=== PATIENT | male | born 1940 | race Hispanic/Latino ===

== ENCOUNTER → 2020-09-17 | Outpatient (CLI) | payer OTHER | END | disposition home or self-care (01) | LOC: SHCH 08:20 | PROVIDERS: ATTEND Internal Medicine Cardiovascular Disease | DX: I11.9 Hypertensive heart disease without heart failure (principal); E66.9 Obesity, unspecified; E78.5 Hyperlipidemia, unspecified; R55 Syncope and collapse | CPT/HCPCS: 93306; 93356 ==

== ENCOUNTER 2021-01-07 07:48 | Day surgery (SDC) | payer OTHER ==
[2021-01-05 10:55] LABS: APPEARANCE,URINE Clear (CLEAR); BILIRUBIN,URINE Negative (NEGATIVE); COLOR,URINE Yellow (YELLOW); GLUCOSE, URINE (UA) Negative (NEGATIVE); KETONES,URINE Negative (NEGATIVE); LEUKOCYTE ESTERASE ,URINE Negative (NEGATIVE); NITRATE,URINE Negative (NEGATIVE); OCCULT BLOOD,URINE Negative (NEGATIVE); PROTEIN,URINE Negative (NEGATIVE); UROBILINOGEN,URINE 0.2 mg/dL (0.2-1.0)
[2021-01-05 11:15] LABS: BASOPHILS % (AUTO) 0.6 % (0.0-5.0); EOSINOPHILS % (AUTO) 1.7 % (0.0-8.0); HEMATOCRIT 41.4 % (42-54); MEAN CORPUSCULAR HEMOGLOBIN 29.8 pg (27.0-33.0); MEAN CORPUSCULAR HGB CONC 32.4 g/dL (32.0-36.0); MONOCYTES % (AUTO) 9.7 % (3.0-13.0); NEUTROPHILS % (AUTO) 58.5 % (40.0-77.0); PLATELET COUNT (AUTO) 215 K/uL (130-400); RED CELL DISTRIBUTION WIDTH 14.4 % (11.0-15.5); WHITE BLOOD COUNT (AUTO) 6.3 K/uL (4.8-10.8)
[2021-01-05 11:20] LABS: CREATININE 1.2 mg/dL (0.5-1.5); POTASSIUM 4.7 mmol/L (3.5-5.1)
[2021-01-05 12:12] LABS: INR 0.98 (0.85-1.15); PROTHROMBIN TIME 10.7 SEC (9.6-11.6)
[2021-01-05 12:14] LABS: PARTIAL THROMBOPLASTIN TIME 28.2 SEC (26.3-35.5)
[2021-01-06 10:18] VITALS: BP 162/70
[2021-01-07] VITALS (11 sets, daily range): BP systolic 120–152; BP diastolic 54–77
[~2021-01-07] VITALS: Ht 172.7 cm; Wt 94.3 kg
[~2021-01-07 07:48] MED LIST: 0.9% NACL 500ML IV.SOLN 500 ML IV SCH; AEC81 PO; LOSA50TA64 PO; SIMV80TA91 PO
[2021-01-07] MEDS ORDERED: 0.9%NACL 1000ML 1,000 ML IV ONE (08:16)
[2021-01-07] MEDS ORDERED: METO-408 PO (08:49)
[2021-01-07] MEDS ORDERED: SODIUM BICARB 50MEQ 50ML VIAL 50 ML ONE (09:44)
[2021-01-07] MEDS ORDERED: IOHEXOL 350 MG/ML 100ML INFUS..BTL IV ONE (09:45)
[2021-01-07] MEDS ORDERED: MEPERIDINE-PF 25 MG/ML SYG ONE ×2 (09:45→10:34)
[2021-01-07] MEDS ORDERED: NICARDIPINE 25MG INJ IV ONE (09:45)
[2021-01-07] MEDS ORDERED: HEPARIN 10,000 UNIT/10ML (1,000 UNIT/ML) VIAL ONE (09:45)
[2021-01-07] MEDS ORDERED: NITROGLYCERIN 2 MG VIAL IV ONE (09:45)
[2021-01-07] MEDS ORDERED: IOHEXOL-350 50ML VIAL IV ONE (09:45)
[2021-01-07] MEDS ORDERED: LIDOCAINE HCL 400MG/20ML VIAL ONE (09:46)
[2021-01-07] MEDS ORDERED: MIDAZOLAM HCL 1 MG/ML 2ML VIAL ONE ×2 (09:46→10:34)
[2021-01-07] MEDS ORDERED: 0.9%NACL 1000ML 1,000 ML IV SCH (11:30)
== END 2021-01-07 15:45 | disposition home or self-care (01) ==
LOC: DAH 07:48
PROVIDERS: ATTEND Internal Medicine Cardiovascular Disease
DX: I25.119 Atherosclerotic heart disease of native coronary artery with unspecified angina pectoris (principal); I10 Essential (primary) hypertension; Z79.01 Long term (current) use of anticoagulants; Z79.899 Other long term (current) drug therapy; Z79.82 Long term (current) use of aspirin; Z90.89 Acquired absence of other organs; Z98.890 Other specified postprocedural states
CPT/HCPCS: 36415; 71045; 80048; 81003; 85025; 85610; 85730; 93005; 93458; A4215; A4216; A4221; A4222; A4223 ×3; A4606; A4663; C1769; C1894; J1644; J2175 ×2; J2250 ×2; J3490 ×4; J7030; Q9965; Q9967 ×2; 99156; 99157

== ENCOUNTER 2022-01-10 08:25 | Inpatient (IN) | payer OTHER ==
[~2022-01-10] VITALS: Ht 172.7 cm; Wt 83.0 kg
[~2022-01-10 08:25] MED LIST changes: -0.9% NACL 500ML IV.SOLN 500 ML IV SCH; +METO-408 PO
[2022-01-10 09:21] LABS: BASOPHILS % (AUTO) 0.5 % (0.0-5.0); EOSINOPHILS % (AUTO) 1.4 % (0.0-8.0); HEMATOCRIT 43.4 % (42-54); LYMPHOCYTES % (AUTO) 19.2 % (21.0-51.0); MEAN CORPUSCULAR HEMOGLOBIN 29.8 pg (27.0-33.0); MEAN CORPUSCULAR HGB CONC 33.6 g/dL (32.0-36.0); MEAN CORPUSCULAR VOLUME 88.6 fL (79-99); MONOCYTES % (AUTO) 7.3 % (3.0-13.0); NEUTROPHILS % (AUTO) 71.1 % (40.0-77.0); PLATELET COUNT (AUTO) 219 K/uL (130-400); RED CELL DISTRIBUTION WIDTH 14.6 % (11.0-15.5); WHITE BLOOD COUNT (AUTO) 7.9 K/uL (4.8-10.8)
[2022-01-10 09:30] LABS: INR 0.94 (0.85-1.15); PROTHROMBIN TIME 10.3 SEC (9.6-11.6)
[2022-01-10 09:32] LABS: PARTIAL THROMBOPLASTIN TIME 28.1 SEC (26.3-35.5)
[2022-01-10 09:47] LABS: APPEARANCE,URINE CLEAR (CLEAR); BILIRUBIN,URINE NEGATIVE (NEGATIVE); COLOR,URINE YELLOW (YELLOW); GLUCOSE, URINE (UA) NEGATIVE (NEGATIVE); KETONES,URINE NEGATIVE (NEGATIVE); LEUKOCYTE ESTERASE ,URINE NEGATIVE (NEGATIVE); NITRATE,URINE NEGATIVE (NEGATIVE); OCCULT BLOOD,URINE NEGATIVE (NEGATIVE); PROTEIN,URINE NEGATIVE (NEGATIVE); UROBILINOGEN,URINE 0.2 mg/dL (0.2-1.0)
[2022-01-10 09:47] LABS: ALBUMIN 3.5 g/dL (3.5-5.0); B-TYPE NATRIURETIC PEPTIDE 171 pg/mL (0-100); CREATININE 1.1 mg/dL (0.5-1.5); POTASSIUM 4.4 mmol/L (3.5-5.1); TOTAL PROTEIN, SERUM 7.4 g/dL (6.0-8.3)
[2022-01-10] MEDS ORDERED: ASPI-1443 PO (10:54)
[2022-01-10] MEDS ORDERED: MULT-1192 PO (10:54)
[2022-01-10 11:20] LABS: HEMOGLOBIN A1C 5.9 % (4.0-6.0)
[2022-01-10] MEDS: 0.9%NACL 1000ML 1,000 ML IV SCH (11:39)
[2022-01-10 14:00] VITALS: BP 154/67
[2022-01-10 16:00] VITALS: BP 173/77
[2022-01-10] MEDS: ATORVASTATIN 40 MG TABLET PO SCH (19:43)
[2022-01-10 20:00] VITALS: BP 146/66
[2022-01-11] VITALS: BP 182/67
[2022-01-11 03:50] LABS: HEMATOCRIT 39.5 % (42-54); MEAN CORPUSCULAR HEMOGLOBIN 29.9 pg (27.0-33.0); MEAN CORPUSCULAR HGB CONC 34.2 g/dL (32.0-36.0); MEAN CORPUSCULAR VOLUME 87.4 fL (79-99); RED BLOOD CELL COUNT(AUTO) 4.52 MIL/uL (4.50-6.20); RED CELL DISTRIBUTION WIDTH 14.3 % (11.0-15.5); WHITE BLOOD COUNT (AUTO) 7.2 K/uL (4.8-10.8)
[2022-01-11 04:00] VITALS: BP 147/73
[2022-01-11 04:04] LABS: INR 0.99 (0.85-1.15); PROTHROMBIN TIME 10.8 SEC (9.6-11.6)
[2022-01-11 04:14] LABS: ALBUMIN 3.2 g/dL (3.5-5.0); CREATININE 1.1 mg/dL (0.5-1.5); POTASSIUM 3.9 mmol/L (3.5-5.1); TOTAL PROTEIN, SERUM 6.6 g/dL (6.0-8.3)
[2022-01-11] MEDS: 0.9%NACL 1000ML 1,000 ML IV SCH (07:00)
[2022-01-11 09:21] VITALS: BP 111/72
[2022-01-11 12:27] VITALS: BP 142/61
[2022-01-11] MEDS: ASPIRIN 81 MG EC TAB PO SCH (12:43)
[2022-01-11] MEDS: CLOPIDOGREL 75MG TAB PO SCH (12:44)
[2022-01-11] MEDS: FAMOTIDINE 20MG VIAL IV SCH ×2 (12:51→20:17)
[2022-01-11 17:26] VITALS: BP 145/103
[2022-01-11] MEDS: ATORVASTATIN 40 MG TABLET PO SCH (20:17)
[2022-01-11 21:21] VITALS: BP 139/74
[2022-01-12 00:09] VITALS: BP 160/73
[2022-01-12 03:50] VITALS: BP 145/66
[2022-01-12 08:11] VITALS: BP 143/70
[2022-01-12] MEDS: FAMOTIDINE 20MG VIAL IV SCH ×2 (08:20→20:08)
[2022-01-12] MEDS: ASPIRIN 81 MG EC TAB PO SCH (08:21)
[2022-01-12] MEDS: CLOPIDOGREL 75MG TAB PO SCH (08:21)
[2022-01-12 11:28] VITALS: BP 115/56
[2022-01-12] MEDS ORDERED: ATOR40TA69 PO (13:54)
[2022-01-12] MEDS ORDERED: CLOP75TA14 PO (13:54)
[2022-01-12 16:52] VITALS: BP 134/73
[2022-01-12] MEDS ORDERED: LACTULOSE 20 GM/30 ML UDCUP PO PRN (18:00)
[2022-01-12 19:57] VITALS: BP 145/75
[2022-01-12] MEDS: ATORVASTATIN 40 MG TABLET PO SCH (20:08)
[2022-01-13] VITALS (7 sets, daily range): BP systolic 125–152; BP diastolic 56–76
[2022-01-13 03:54] LABS: HEMATOCRIT 38.6 % (42-54); MEAN CORPUSCULAR HGB CONC 33.9 g/dL (32.0-36.0); MEAN CORPUSCULAR VOLUME 88.3 fL (79-99); RED BLOOD CELL COUNT(AUTO) 4.37 MIL/uL (4.50-6.20); RED CELL DISTRIBUTION WIDTH 14.5 % (11.0-15.5); WHITE BLOOD COUNT (AUTO) 7.7 K/uL (4.8-10.8)
[2022-01-13 04:15] LABS: CREATININE 1.2 mg/dL (0.5-1.5); POTASSIUM 3.7 mmol/L (3.5-5.1)
[2022-01-13] MEDS: ASPIRIN 81 MG EC TAB PO SCH (08:28)
[2022-01-13] MEDS: FAMOTIDINE 20MG VIAL IV SCH ×2 (08:29→21:22)
[2022-01-13] MEDS: CLOPIDOGREL 75MG TAB PO SCH (08:29)
[2022-01-13] MEDS: ATORVASTATIN 40 MG TABLET PO SCH (21:22)
[2022-01-14 04:11] VITALS: BP 140/70
[2022-01-14 08:00] VITALS: BP 155/66
[2022-01-14] MEDS: ASPIRIN 81 MG EC TAB PO SCH (08:24)
[2022-01-14] MEDS: FAMOTIDINE 20MG VIAL IV SCH (08:24)
[2022-01-14] MEDS: CLOPIDOGREL 75MG TAB PO SCH (08:24)
[2022-01-14] MEDS ORDERED: AMLODIPINE 5 MG TAB PO SCH (10:00)
[2022-01-14] MEDS ORDERED: FAMOTIDINE 20MG TAB PO SCH (10:28)
[2022-01-14 12:19] VITALS: BP 124/60
== END 2022-01-14 13:13 | DRG 65 ==
LOC: EDH 08:25 → EDHIP 10:52 → 4BH 13:40
PROVIDERS: ADMIT Hospitalist; ATTEND Hospitalist
DX: I63.512 Cerebral infarction due to unspecified occlusion or stenosis of left middle cerebral artery (principal); G81.91 Hemiplegia, unspecified affecting right dominant side; Z20.822 Contact with and (suspected) exposure to COVID-19; I25.10 Atherosclerotic heart disease of native coronary artery without angina pectoris; E66.9 Obesity, unspecified; R13.10 Dysphagia, unspecified; E78.5 Hyperlipidemia, unspecified; I11.9 Hypertensive heart disease without heart failure; Z95.1 Presence of aortocoronary bypass graft; Z86.73 Personal history of transient ischemic attack (TIA), and cerebral infarction without residual deficits; Z79.899 Other long term (current) drug therapy; Z79.82 Long term (current) use of aspirin; Z79.02 Long term (current) use of antithrombotics/antiplatelets; Z68.27 Body mass index [BMI] 27.0-27.9, adult
CPT/HCPCS: 36415; 70450; 70551; 71045; 74230; 80048; 80053; 80061; 81003; 82550; 82948; 83036; 83721; 83874; 83880; 84484; 85025; 85027; 85610; 85730; 87635; 92522; 92610; 92611; 93005; 93306; 93356; 93880; 97039; G0378; J3490; J7030

== ENCOUNTER 2022-04-03 06:59 | Day surgery (SDC) | payer OTHER ==
[2022-03-30 11:24] LABS: BASOPHILS % (AUTO) 0.7 % (0.0-5.0); EOSINOPHILS % (AUTO) 1.5 % (0.0-8.0); HEMATOCRIT 42.8 % (42-54); LYMPHOCYTES % (AUTO) 25.1 % (21.0-51.0); MEAN CORPUSCULAR HEMOGLOBIN 29.6 pg (27.0-33.0); MEAN CORPUSCULAR HGB CONC 32.5 g/dL (32.0-36.0); MEAN CORPUSCULAR VOLUME 91.1 fL (79-99); MONOCYTES % (AUTO) 9.9 % (3.0-13.0); NEUTROPHILS % (AUTO) 62.4 % (40.0-77.0); PLATELET COUNT (AUTO) 231 K/uL (130-400); RED CELL DISTRIBUTION WIDTH 14.6 % (11.0-15.5); WHITE BLOOD COUNT (AUTO) 7.3 K/uL (4.8-10.8)
[2022-03-30 11:28] LABS: CREATININE 1.2 mg/dL (0.5-1.5); POTASSIUM 4.8 mmol/L (3.5-5.1)
[2022-03-30 11:35] LABS: INR 0.94 (0.85-1.15); PROTHROMBIN TIME 10.3 SEC (9.6-11.6)
[2022-03-30 11:37] LABS: PARTIAL THROMBOPLASTIN TIME 27.1 SEC (26.3-35.5)
[2022-03-31 17:07] VITALS: BP 162/75
[2022-04-03] VITALS (26 sets, daily range): BP systolic 118–184; BP diastolic 58–96
[~2022-04-03] VITALS: Ht 172.7 cm; Wt 83.7 kg
[~2022-04-03 06:59] MED LIST changes: -AEC81 PO; +AMLO-257 PO; +ATOR40TA69 PO; +CLOP75TA32 PO; +IBUP-2070 PO; -LOSA50TA64 PO; -METO-408 PO; -SIMV80TA91 PO
[2022-04-03] MEDS ORDERED: FLUMAZENIL 0.1MG/1ML 5ML VIAL IV ONE (07:53)
[2022-04-03] MEDS ORDERED: LIDOCAINE HCL 2% VISCOUS 15 ML UDCUP ONE (07:53)
[2022-04-03] MEDS ORDERED: FENTANYL CITRATE PF 50 MCG/1 ML 2ML VIAL ONE (07:54)
[2022-04-03] MEDS ORDERED: NALOXONE HCL 0.4 MG/1 ML ML ONE (07:54)
[2022-04-03] MEDS ORDERED: MIDAZOLAM HCL 1 MG/ML 2ML VIAL ONE ×4 (07:55→09:43)
[2022-04-03] MEDS ORDERED: PROPOFOL 10 MG/ML 20ML VIAL IV ONE (07:56)
[2022-04-03] MEDS ORDERED: MELA3CAP2 PO (08:53)
[2022-04-03] MEDS ORDERED: MEPERIDINE-PF 25 MG/ML SYG ONE ×2 (09:31→09:43)
[2022-04-03] MEDS ORDERED: LIDOCAINE HCL 1% 20 ML VIAL ONE (09:31)
[2022-04-03] MEDS ORDERED: CEFAZOLIN SODIUM 1 GM VIAL ONE (09:55)
== END 2022-04-03 12:15 | disposition home or self-care (01) ==
LOC: DAH 06:59
PROVIDERS: ATTEND Internal Medicine Cardiovascular Disease
DX: R06.09 Other forms of dyspnea (principal); I25.3 Aneurysm of heart; I63.89 Other cerebral infarction; I34.0 Nonrheumatic mitral (valve) insufficiency; I10 Essential (primary) hypertension; E78.5 Hyperlipidemia, unspecified; Z79.01 Long term (current) use of anticoagulants; Z79.899 Other long term (current) drug therapy; Z79.82 Long term (current) use of aspirin; Z90.89 Acquired absence of other organs; Z98.890 Other specified postprocedural states; Z82.49 Family history of ischemic heart disease and other diseases of the circulatory system; Z95.5 Presence of coronary angioplasty implant and graft
CPT/HCPCS: 80048; 85025; 85610; 85730; 36415; 93005; 33285; 93325; 93312; C1764; J3010; J0690; J2250 ×4; J2704; J2175 ×2; A4615; A4215; A4657; A4222; A4221; A4663; A4216; A4606; A4223 ×3; 96374; 99156; 99157; J2310; J3490

== ENCOUNTER → 2022-07-26 | Outpatient (CLI) | payer OTHER ==
[~2022-07-26] MED LIST changes: +MELA3CAP2 PO
== END | disposition home or self-care (01) ==
LOC: RAH 11:56
PROVIDERS: ATTEND Physical Medicine & Rehabilitation
DX: M47.27 Other spondylosis with radiculopathy, lumbosacral region (principal); M48.07 Spinal stenosis, lumbosacral region
CPT/HCPCS: 72148